=== PATIENT | female | born 1960 | race Caucasian/White ===

== ENCOUNTER 2020-01-04 08:15 | Outpatient (CLI) | payer OTHER ==
[2020-01-04] VITALS (12 sets, daily range): BP systolic 128–158; BP diastolic 10–105
[~2020-01-04] VITALS: Ht 175.3 cm; Wt 49.9 kg
[2020-01-04] MEDS ORDERED: ASPI-630 PO (08:45)
[2020-01-04] MEDS ORDERED: ERGO400T2 PO (08:45)
[2020-01-04] MEDS ORDERED: CYAN25008 PO (08:45)
[2020-01-04] MEDS ORDERED: ATOR40TA59 PO (08:45)
[2020-01-04] MEDS ORDERED: ACET325T9 PO (08:45)
[2020-01-04] MEDS ORDERED: CALC-178 PO (08:45)
[2020-01-04 10:19] LABS: BASO # 0.1 x10^3/uL (0.0-0.2); BASO % 1 % (0-3); EOS % 1 % (0-3); HEMATOCRIT 36.3 % (36.0-47.0); HEMOGLOBIN 12.4 g/dL (12.0-15.5); LYMPH # 0.7 x10^3/uL (1.0-4.8); LYMPH % 14 % (24-48); MEAN CORPUSCULAR HEMOGLOBIN 34 pg (25-35); MEAN CORPUSCULAR HGB CONC 34 g/dL (31-37); MEAN CORPUSCULAR VOLUME 99 fL (79-100); MONO # 0.4 x10^3/uL (0.0-1.1); MONO % 7 % (0-9); NEUT # 3.8 x10^3/uL (1.8-7.7); NEUT % 77 % (31-73); PLATELET COUNT 196 x10^3/uL (140-400); RED BLOOD COUNT 3.67 x10^6/uL (3.50-5.40); RED CELL DISTRIBUTION WIDTH 13.6 % (11.5-14.5)
[2020-01-04 10:21] LABS: CALCIUM 8.8 mg/dL (8.5-10.1); CREATININE 0.5 mg/dL (0.6-1.0); GFR 126.7; POTASSIUM 3.5 mmol/L (3.5-5.1)
[2020-01-04 10:24] LABS: PROTHROMBIN TIME PATIENT 12.5 SEC (11.7-14.0)
[2020-01-04] MEDS ORDERED: IOHEXOL 240 MG/ML 50ML VIAL. ONE (10:44)
[2020-01-04] MEDS ORDERED: LIDOCAINE WITH 8.4% SOD BICARB 3 ML DISP.SYRIN. ONE (10:44)
[2020-01-04] MEDS ORDERED: ceFAZolin SODIUM IV Push 1 GM VIAL. IVP ONE ×2 (10:56→12:15)
[2020-01-04] MEDS ORDERED: MIDAZOLAM HCL/PF 5 MG/5 ML VIAL. ONE (11:10)
[2020-01-04] MEDS ORDERED: fentaNYL PF VIAL 250 MCG/5 ML VIAL ONE (11:10)
[2020-01-04] MEDS ORDERED: MIDAZOLAM HCL/PF 2 MG/2 ML VIAL. ONE (11:49)
[2020-01-04] MEDS ORDERED: diphenhydrAMINE 50 MG/ML VIAL ONE (11:54)
[2020-01-04] MEDS ORDERED: IOHEXOL 240 MG/ML 50ML VIAL. IJ ONE (12:15)
[2020-01-04] MEDS ORDERED: LIDOCAINE WITH 8.4% SOD BICARB 3 ML DISP.SYRIN. IJ ONE (12:15)
[2020-01-04] MEDS ORDERED: diphenhydrAMINE 50 MG/ML VIAL IVP ONE (12:15)
[2020-01-04] MEDS ORDERED: MIDAZOLAM HCL/PF 2 MG/2 ML VIAL. IV ONE (12:15)
[2020-01-04] MEDS ORDERED: MIDAZOLAM HCL/PF 5 MG/5 ML VIAL. IV ONE (12:15)
[2020-01-04] MEDS ORDERED: fentaNYL PF VIAL 250 MCG/5 ML VIAL IV ONE (12:15)
[2020-01-04] MEDS ORDERED: oxyCODONE/APAP 5/325 1 TAB TABLET PO PRN (13:00)
[2020-01-04] MEDS ORDERED: KETOROLAC 15 MG/ML VIAL. IVP PRN (13:00)
--- NOTE | 2020-01-04 14:48 | NUR ---
discharge notes Pt ate lunch w/o nausea & Vomit. VSS. HR was up and down between 80s & 90s. Discharge instructions were reviewed w/ pt and spouse. Both of them verbalized understanding. Pt's belongings were w/ pt. IV was discontinued by this nurse. Pt would be taken down to lobby via W/C by this nurse.
--- NOTE | 2020-01-04 16:52 | RAD ---
Fluoroscopically guided kyphoplasty, T9, T8 Indication:Pathologic compression fractures, with severe pain refractory to conservative treatment measures Fluoro time:26.8 minutes Dose area product: 615.8 Gycm2 Moderate sedation: The patient was appropriately monitored by a qualified independent observer throughout the course of the moderate sedation. [id number] sedation time:1 hour Consent: The risks and benefits of the procedure were discussed with the patient. Informed consent was obtained. The patient was brought to the fluoroscopy suite and placed in the prone position. A timeout procedure was performed. Preprocedural antibiotics were administered. Procedure: The overlying skin was prepped and draped in the usual sterile fashion. All elements of maximal sterile barrier technique including the use of a cap, mask, sterile gown, sterile gloves, large sterile sheet, appropriate hand hygiene, and 2% chlorhexidine for cutaneous antisepsis (or acceptable alternative antiseptic per current guidelines) were followed for this procedure. Using a left transpedicular approach, and direct fluoroscopic guidance, a trocar needle was advanced to the posterior third of the targeted T8 vertebral body. Vertebral augmentation balloon was then coaxially introduced through the needle, into the more central vertebral body and was deployed. A curved cement delivery needle was advanced into the contralateral vertebral body. Contrast opacified polymethylmethacrylate was then very slowly and carefully introduced through the vertebral augmentation needle, using strict fluoroscopic control. Once adequate filling had been achieved the needles were removed and manual pressure was held. No significant extravasation or complication was identified. This procedure was performed in an essentially identical fashion at the T9 level using a right-sided transpedicular approach. Following the procedure sterile dressings were applied. No immediate complications were identified. Impression: Fluoroscopically guided kyphoplasty at T9 and T8
== END 2020-01-04 15:23 | disposition home or self-care (01) ==
LOC: INTRAD 08:15
PROVIDERS: ATTEND Nurse Practitioner Family
DX: M48.54XA Collapsed vertebra, not elsewhere classified, thoracic region, initial encounter for fracture (principal); F41.9 Anxiety disorder, unspecified; Z98.890 Other specified postprocedural states; Z88.0 Allergy status to penicillin; Z79.01 Long term (current) use of anticoagulants
CPT/HCPCS: 22513; 22515; 36415; 80048; 85025; 85610; C1713; C1758; J0690; J1200; J1885; J2250; J3010; Q9966; 99152; 99153

== ENCOUNTER → 2022-03-24 | Outpatient (CLI) | payer OTHER ==
[2020-01-04 14:58] VITALS: BP 158/100
[~2022-03-24] MED LIST: ACET325T9 PO; ASPI-630 PO; ATOR40TA59 PO; CALC-178 PO; CYAN25008 PO; ERGO400T2 PO
--- NOTE | 2022-03-24 14:44 | RAD ---
EXAM: MG DIAGNOSTICUNILAT MAMMO, US BREAST BIOPSY 1ST LESION 03/24/2022 9:45 AM INDICATION: Suspicious left breast mass COMPARISON: Left breast mammogram 02/09/2022 and ultrasound 03/08/2022 TECHNIQUE/FINDINGS: The purpose of the procedure, risks and benefits were explained to the patient. Informed consent was obtained. A timeout was performed. The patient was placed supine on the ultrasound table. The mass at 5:00 in the retroareolar region in the left breast was identified and overlying skin marked, prepped, draped in standard sterile fashio n. Skin was anesthetized with 1 percent lidocaine. Next, 4 core biopsy samples were obtained with a 1 4-gauge biopsy device. Samples were placed in formalin and sent to the laboratory for analysis. A bio psy marker was then placed at the biopsy site under ultrasound. [place] were removed, pressure held f or hemostasis, and skin cleansed and covered with a dressing. The patient tolerated the procedure wel l and left in stable condition. Post clip mammogram demonstrates appropriate position of clip near the mass at 5:00 in the retroareol ar region. There is increased density in the anterior right breast from postbiopsy changes and lidoca ine administration. IMPRESSION:Technically successful ultrasound-guided biopsy of the suspicious left breast mass and cli p placement. Electronically signed by: Nu Olmstead MD (03/24/2022 2:41 PM) [id number]
== END | disposition home or self-care (01) ==
LOC: US 07:41
PROVIDERS: ATTEND Nurse Practitioner Family
DX: N63.23 Unspecified lump in the left breast, lower outer quadrant (principal); R92.8 Other abnormal and inconclusive findings on diagnostic imaging of breast; M19.90 Unspecified osteoarthritis, unspecified site; F41.9 Anxiety disorder, unspecified; F17.210 Nicotine dependence, cigarettes, uncomplicated; Z79.82 Long term (current) use of aspirin; Z79.899 Other long term (current) drug therapy; Z98.890 Other specified postprocedural states; Z88.0 Allergy status to penicillin
CPT/HCPCS: 19083; 77065; A4648; C1819